=== PATIENT | female | born 1960 | race Caucasian/White ===

== ENCOUNTER 2020-12-16 07:36 | Emergency (ER) | payer OTHER, MEDICAID ==
[~2020-12-16] VITALS: Ht 172.7 cm; Wt 56.0 kg
[~2020-12-16 07:36] MED LIST: LISI-644 PO; PANT40TA54 PO; PROP20TA6 PO
[2020-12-16] MEDS ORDERED: acetaminophen 325mg tablet PO ONE (08:25)
[2020-12-16] MEDS ORDERED: morphine 4 MG/ML inj SYRINge IM ONE ×2 (08:25→10:10)
[2020-12-16] MEDS ORDERED: LIDOcaine 5% patch TP ONE (08:25)
[2020-12-16] MEDS ORDERED: dexamethasone sod phosphate 10mg/ml inj PO STA (08:31)
[2020-12-16] MEDS ORDERED: triamcinolone acetonide 40mg/ml inj IM ONE (08:35)
[2020-12-16] MEDS ORDERED: dicyclomine 10 MG capsule PO ONE (08:35)
[2020-12-16] MEDS ORDERED: ketorolac trometh inj. 60 MG/2 ML VIAL IM ONE (10:10)
[2020-12-16] MEDS ORDERED: LIDO700A32 TOP (11:02)
[2020-12-16] MEDS ORDERED: CYCL-1 PO (11:02)
[2020-12-16 12:06] VITALS: BP 114/92
== END 2020-12-16 12:08 | disposition home or self-care (01) ==
LOC: ER 07:36
DX: M54.5 Low back pain (principal); M25.552 Pain in left hip; R10.32 Left lower quadrant pain; I10 Essential (primary) hypertension; Z98.890 Other specified postprocedural states; Z72.89 Other problems related to lifestyle; Z88.2 Allergy status to sulfonamides; Z88.8 Allergy status to other drugs, medicaments and biological substances; Z79.899 Other long term (current) drug therapy
CPT/HCPCS: 72170; 76881; 96372; 99284; J1100; J1885; J2270; J3301